=== PATIENT | male | born 1970 | race Caucasian/White ===

== ENCOUNTER 2023-07-20 10:09 | Emergency (ER) | payer OTHER, SELFPAY ==
[2023-07-20 10:19] VITALS: BP 136/90; PULSE 64; RESP 20; TEMP 36.6; O2SAT 96; BMI 36.5
--- NOTE | 2023-07-20 10:28 | ED_ITS ---
HPI - Eye Problem General Chief complaint: Eye Problems Stated complaint: EYE INJURY [facility] Time Seen by Provider: 07/20/23 10:24 Source: patient Mode of arrival: walk-in Limitations: no limitations History of Present Illness HPI Narrative: 52-year-old male presents for right eye pain. He was accidentally hit in the right eye with a tree branch yesterday. He's been on some antibiotic drops from his doctor. No other injury was sustained. The ppain is moderate and worse with light. Related Data Home Medications Medication Instructions Recorded Confirmed aspirin 81 mg tablet,delayed 81 mg PO DAILY 07/20/23 07/20/23 release atenolol 50 mg tablet 50 mg PO DAILY 07/20/23 07/20/23 atorvastatin 10 mg tablet mg 07/20/23 atorvastatin 80 mg tablet 80 mg PO DAILY 07/20/23 07/20/23 gentamicin 0.3 % eye drops 2 drp ophthalmic (eye) DAILY 07/20/23 07/20/23 losartan 100 mg tablet 100 mg PO DAILY 07/20/23 07/20/23 metformin 500 mg tablet 500 mg PO BID 07/20/23 07/20/23 semaglutide 0.25 mg or 0.5 mg (2 0.25 mg subcut .qmonth 07/20/23 07/20/23 mg/3 mL) subcutaneous pen injector (Ozempic) Previous Rx's Medication Instructions Recorded ketorolac 0.5 % eye drops (Acular) 1 drp ophthalmic (eye) Q6H #5 mL 07/20/23 Allergies Allergy/AdvReac Type Severity Reaction Status Date / Time No Known Drug Allergies Allergy Verified 07/20/23 10:23 Review of Systems ROS Narrative A ten point review of systems is negative except as noted above. PFSH PFSH Social History Smoking status: Heavy tobacco smoker Exam Narrative Exam Narrative: Nurses note and vital signs reviewed and patient is not hypoxic. General: The patient appears well and in no apparent distress. Patient is resting comfortably on cart. Skin: Warm, dry, no pallor noted. There is no rash noted. Head: Normocephalic, atraumatic Eye: the right globe is intact. No foreign body is found. He has a corneal abrasion at the 6 o'clock position. Ears, Nose, Mouth, and Throat: oral mucosa is moist. Nares patent. Cardiovascular: Regular Rate and Rhythm Respiratory: Patient is in no distress, no accessory muscle use Back: non-tender GI: Normal bowel sounds, no tenderness to palpation, no masses appreciated. No rebound, guarding, or rigidity noted. Musculoskeletal: The patient has no evidence of calf tenderness, no pitting edema, symmetrical pulses noted bilaterally Neurological: A&O, normal speech Psychiatric: Cooperative Constitutional Vital Signs, click to edit/add: Last Vital Signs Temp 97.9 F 07/20/23 10:19 Pulse 64 07/20/23 10:19 Resp 20 07/20/23 10:19 BP 136/90 07/20/23 10:19 Pulse Ox 96 07/20/23 10:19 O2 Del Method Room Air 07/20/23 10:19 Course Vital Signs Vital signs: Vital Signs Temperature 97.9 F 07/20/23 10:19 Pulse Rate 64 07/20/23 10:19 Respiratory Rate 20 07/20/23 10:19 Blood Pressure 136/90 07/20/23 10:19 Pulse Oximetry 96 07/20/23 10:19 Oxygen Delivery Method Room Air 07/20/23 10:19 Temperature 97.9 F 07/20/23 10:19 Pulse Rate 64 07/20/23 10:19 Respiratory Rate 20 07/20/23 10:19 Blood Pressure 136/90 07/20/23 10:19 Pulse Oximetry 96 07/20/23 10:19 Oxygen Delivery Method Room Air 07/20/23 10:19 MDM - Eye Problem MDM Narrative Medical decision making narrative: corneal abrasion is identified. Tetanus status is updated. He is already on antibiotic eyedrops and was prescribed Acular. Treatment diagnosis and follow-up were discussed with the patient. Discharge Plan Discharge Chief Complaint: Eye Problems Clinical Impression: Corneal abrasion Patient Disposition: Home, Self-Care Time of Disposition Decision: 10:45 Condition: Good Mode of Transportation: Private Vehicle Prescriptions / Home Meds: New ketorolac [Acular] 0.5 % drops 1 drp ophthalmic (eye) Q6H Qty: 5 0RF Rx Instructions: start 24 hours after surgery No Action aspirin 81 mg tablet,delayed release (DR/EC) 81 mg PO DAILY atenolol 50 mg tablet 50 mg PO DAILY atorvastatin 80 mg tablet 80 mg PO DAILY atorvastatin 10 mg tablet gentamicin 0.3 % drops 2 drp ophthalmic (eye) DAILY losartan 100 mg tablet 100 mg PO DAILY metformin 500 mg tablet 500 mg PO BID Ozempic 0.25 mg or 0.5 mg (2 mg/3 mL) pen injector 0.25 mg SUBCUT .qmonth Instructions: Corneal Abrasion (ED) Stand Alone Forms: Portal Instructions Referrals: MASSIEL DUKES [Primary Care Provider] - 1 week
[2023-07-20] MEDS: ADACEL DIPH,PERTUSS(ACELL),TET VAC/PF 0.5 ML ADULT SYRINGE IM (11:04)
[2023-07-20] MEDS: FLUORESCEIN SODIUM 1 MG STRIP OP (11:05)
== END 2023-07-20 11:11 | disposition home or self-care (01) ==
PROVIDERS: Emergency Provider Emergency Medicine; PCP Family Medicine
DX: S05.01XA Injury of conjunctiva and corneal abrasion without foreign body, right eye, initial encounter (principal); Z23 Encounter for immunization; W22.8XXA Striking against or struck by other objects, initial encounter; Z79.82 Long term (current) use of aspirin; Z79.899 Other long term (current) drug therapy; Z79.84 Long term (current) use of oral hypoglycemic drugs; F17.210 Nicotine dependence, cigarettes, uncomplicated
CPT/HCPCS: 90471; 90715; 99283